=== PATIENT | male | born 1940 ===

== ENCOUNTER 2018-01-09 04:30 | Inpatient (IN) | payer MEDICARE ==
[~2018-01-09] VITALS: Ht 180.3 cm; Wt 93.0 kg
[~2018-01-09 04:30] MED LIST: AMLO10 PO; ASPI81EC PO; ATEN25 PO; ATOR40TA PO; CITA10S PO; CYAN1000 PO; DILT120ERA PO; ERGO400 PO; FOLI1 PO; FOLI400 PO; GABA300 PO; HYDCHL12.5 PO; INSULANPEN SC; LOSA50 PO; MAGOXI400 PO; METO100ER PO; MULVITMINF PO; NIAC500 PO; POTCHL20ER PO; TAMS.4ER PO; UBID10 PO; ZINC GLUCONATE PO; [UNRECOGNIZED DRUG - REMARK]
[2018-01-09 04:56] LABS: BASOPHILS ABSOLUTE AUTO 0.08 K/mm3 (0.00-0.23); BASOPHILS PERCENT AUTO 0 % (0-2); EOSINOPHILS PERCENT AUTO 2 % (0-6); Hematocrit 33.2 % (37.0-53.0); Hemoglobin 10.3 g/dL (13.5-17.5); IMMATURE GRAN ABSOLUTE AUTO 0.12 K/mm3 (0.00-0.10); IMMATURE GRAN PERCENT AUTO 1 % (0-1); LYMPHOCYTES ABSOLUTE AUTO 2.64 K/mm3 (0.84-5.20); LYMPHOCYTES PERCENT AUTO 14 % (21-46); MONOCYTES ABSOLUTE AUTO 1.48 K/mm3 (0.16-1.47); MONOCYTES PERCENT AUTO 8 % (4-13); Mean Corpuscular HGB 29.1 pg (26.0-34.0); Mean Corpuscular Volume 94 fL (80-100); Mean Platelet Volume 10.2 fL (9.1-12.4); NEUTROPHILS ABSOLUTE AUTO 14.78 K/mm3 (1.96-9.15); NEUTROPHILS PERCENT AUTO 76 % (41-73); NRBC ABSOLUTE 0.03 K/mm3 (0.00-0.02); NRBC Auto 0.2 /100 WBC (0.0-0.2); Platelet Count 353 K/mm3 (150-400); RDW Coefficient Variation 17.4 % (11.7-14.2); RDW Standard Deviation 57.8 fL (35.1-46.3); Red Blood Cell Count 3.54 M/mm3 (4.30-5.90)
[2018-01-09] MEDS ORDERED: ELIQUIS5 MG PO (05:12)
[2018-01-09 05:16] LABS: Alanine Aminotransfer (ALT/SGP 54 U/L (12-78); Albumin, Blood 3.1 g/dL (3.4-5.0); Albumin/Globulin Ratio 0.9 (0.8-1.8); Alk Phos 102 U/L (50-136); Anion Gap 11 mmol/L (6-16); Aspartate Aminotrans (AST/SGOT 27 U/L (12-37); Bilirubin, Total 0.3 mg/dL (0.1-1.0); Blood Urea Nitrogen 56 mg/dL (8-24); Bun/Creatinine Ratio 47.1 (12.0-20.0); CO2, Blood 24 mmol/L (21-32); Calcium, Blood 9.6 mg/dL (8.5-10.1); Chloride, Blood 112 mmol/L (98-108); Creatinine, Blood 1.19 mg/dL (0.60-1.20); Ethanol (Alcohol), Blood, Med <3 mg/dL; Globulin, Blood 3.6 g/dL (2.2-4.0); Glomerular Filtration Rate >60 (60-); Glucose, Blood 170 mg/dL (70-99); Potassium, Blood 4.1 mmol/L (3.5-5.5); Sodium, Blood 147 mmol/L (136-145); Total Protein, Blood 6.7 g/dL (6.4-8.2); Troponin I <0.015 ng/mL (0.000-0.040)
[2018-01-09] MEDS ORDERED: METO25ER PO (08:11)
[2018-01-10 05:26] LABS: BASOPHILS ABSOLUTE AUTO 0.07 K/mm3 (0.00-0.23); BASOPHILS PERCENT AUTO 1 % (0-2); EOSINOPHILS ABSOLUTE AUTO 0.49 K/mm3 (0.00-0.68); EOSINOPHILS PERCENT AUTO 3 % (0-6); Hematocrit 27.5 % (37.0-53.0); Hemoglobin 8.6 g/dL (13.5-17.5); IMMATURE GRAN ABSOLUTE AUTO 0.07 K/mm3 (0.00-0.10); IMMATURE GRAN PERCENT AUTO 1 % (0-1); LYMPHOCYTES ABSOLUTE AUTO 3.06 K/mm3 (0.84-5.20); LYMPHOCYTES PERCENT AUTO 20 % (21-46); MONOCYTES ABSOLUTE AUTO 1.48 K/mm3 (0.16-1.47); MONOCYTES PERCENT AUTO 10 % (4-13); Mean Corpuscular HGB 29.7 pg (26.0-34.0); Mean Corpuscular HGB Conc 31.3 g/dL (31.5-36.5); Mean Corpuscular Volume 95 fL (80-100); Mean Platelet Volume 9.9 fL (9.1-12.4); NEUTROPHILS ABSOLUTE AUTO 10.19 K/mm3 (1.96-9.15); NEUTROPHILS PERCENT AUTO 66 % (41-73); NRBC ABSOLUTE 0.04 K/mm3 (0.00-0.02); NRBC Auto 0.3 /100 WBC (0.0-0.2); Platelet Count 290 K/mm3 (150-400); RDW Coefficient Variation 18.2 % (11.7-14.2); RDW Standard Deviation 58.2 fL (35.1-46.3); White Blood Cell Count 15.36 K/mm3 (4.00-11.30)
[2018-01-10 05:51] LABS: Alanine Aminotransfer (ALT/SGP 44 U/L (12-78); Albumin, Blood 2.7 g/dL (3.4-5.0); Albumin/Globulin Ratio 0.9 (0.8-1.8); Alk Phos 106 U/L (50-136); Anion Gap 8 mmol/L (6-16); Aspartate Aminotrans (AST/SGOT 23 U/L (12-37); Bilirubin, Total 0.4 mg/dL (0.1-1.0); Blood Urea Nitrogen 36 mg/dL (8-24); Bun/Creatinine Ratio 34.3 (12.0-20.0); CO2, Blood 25 mmol/L (21-32); Calcium, Blood 8.8 mg/dL (8.5-10.1); Chloride, Blood 114 mmol/L (98-108); Creatinine, Blood 1.05 mg/dL (0.60-1.20); Globulin, Blood 3.1 g/dL (2.2-4.0); Glomerular Filtration Rate >60 (60-); Glucose, Blood 153 mg/dL (70-99); Potassium, Blood 4.3 mmol/L (3.5-5.5); Sodium, Blood 147 mmol/L (136-145); Total Protein, Blood 5.8 g/dL (6.4-8.2)
[2018-01-10 14:08] LABS: Hemoglobin 8.2 g/dL (13.5-17.5)
[2018-01-11 05:06] LABS: Hematocrit 25.7 % (37.0-53.0)
[2018-01-12 05:02] LABS: BASOPHILS ABSOLUTE AUTO 0.05 K/mm3 (0.00-0.23); BASOPHILS PERCENT AUTO 0 % (0-2); EOSINOPHILS PERCENT AUTO 3 % (0-6); Hematocrit 26.5 % (37.0-53.0); Hemoglobin 8.3 g/dL (13.5-17.5); IMMATURE GRAN ABSOLUTE AUTO 0.06 K/mm3 (0.00-0.10); IMMATURE GRAN PERCENT AUTO 1 % (0-1); LYMPHOCYTES ABSOLUTE AUTO 2.52 K/mm3 (0.84-5.20); LYMPHOCYTES PERCENT AUTO 22 % (21-46); MONOCYTES ABSOLUTE AUTO 1.24 K/mm3 (0.16-1.47); MONOCYTES PERCENT AUTO 11 % (4-13); Mean Corpuscular HGB Conc 31.3 g/dL (31.5-36.5); Mean Corpuscular Volume 93 fL (80-100); Mean Platelet Volume 9.8 fL (9.1-12.4); NEUTROPHILS ABSOLUTE AUTO 7.26 K/mm3 (1.96-9.15); NEUTROPHILS PERCENT AUTO 64 % (41-73); NRBC ABSOLUTE 0.04 K/mm3 (0.00-0.02); NRBC Auto 0.3 /100 WBC (0.0-0.2); Platelet Count 293 K/mm3 (150-400); RDW Coefficient Variation 17.5 % (11.7-14.2); RDW Standard Deviation 58.1 fL (35.1-46.3); Red Blood Cell Count 2.86 M/mm3 (4.30-5.90); White Blood Cell Count 11.43 K/mm3 (4.00-11.30)
[2018-01-13] MEDS ORDERED: Omeprazole20 M1 PO (10:26)
== END 2018-01-13 12:09 | disposition home health service (06) | DRG 381 ==
LOC: ER 04:30 → MEDS 06:26 → ENPENDDIS 01-13 10:18 → MEDS 01-13 12:09
PROVIDERS: Emergency Medicine; Internal Medicine Gastroenterology; Student in an Organized Health Care Education/Training Program
PROC: 3E0234Z Introduction of Serum, Toxoid and Vaccine into Muscle, Percutaneous Approach (ICD-10-PCS; 2018-01-09)
PROC: 0D738ZZ Dilation of Lower Esophagus, Via Natural or Artificial Opening Endoscopic (ICD-10-PCS; principal; 2018-01-09 17:40)
DX: K22.11 Ulcer of esophagus with bleeding (principal); I69.354 Hemiplegia and hemiparesis following cerebral infarction affecting left non-dominant side; I47.2 Ventricular tachycardia; I48.2 Chronic atrial fibrillation; K25.4 Chronic or unspecified gastric ulcer with hemorrhage; R13.10 Dysphagia, unspecified; D50.0 Iron deficiency anemia secondary to blood loss (chronic); E11.9 Type 2 diabetes mellitus without complications; K22.2 Esophageal obstruction; I95.1 Orthostatic hypotension; Z23 Encounter for immunization; I10 Essential (primary) hypertension; M21.372 Foot drop, left foot; R47.81 Slurred speech; F32.9 Major depressive disorder, single episode, unspecified; R47.1 Dysarthria and anarthria; D72.829 Elevated white blood cell count, unspecified
CPT/HCPCS: 36415; 70450; 71046; 80053; 82272; 82947; 84484; 85014; 85018; 85025; 93005; 93010; 96360; 96361; 97110; 97162; 97530; 99285; C9113; G0480; G8978; G8979; J1815; J2250; J7030; J7120

== ENCOUNTER 2018-03-13 11:20 | Emergency (ER) | END 2018-03-13 13:50 | disposition home or self-care (01) ==

== ENCOUNTER → 2022-01-05 | Outpatient (CLI) | payer MEDICARE, OTHER ==
[~2022-01-05] MED LIST changes: +AMLO5 PO; +ASPI81CH PO; +BETAGAN; +ELIQUIS5 MG PO; +ISODIN20 PO; +METO25ER PO; +OCUVITE ADULT1 EACH PO; +Omeprazole20 M1 PO; +Prempro 0.3 MG/1 TAB PO; +ROSU10TA PO; +VALSARTAN-HCTZ1 EAC1 PO
== END ==
LOC: LAB 11:00 → LAB SHORT 11:00
DX: E11.9 Type 2 diabetes mellitus without complications (principal)
CPT/HCPCS: 82043

== ENCOUNTER 2023-01-04 08:42 | Inpatient (IN) | payer MEDICARE, OTHER ==
[~2023-01-04] VITALS: Ht 180.3 cm; Wt 89.6 kg
[~2023-01-04 08:42] MED LIST changes: +CEPH500 PO; +Norco 5-325 Ta1 EACH PO
[2023-01-04] MEDS ORDERED: ELIQUIS5 M2 PO (09:10)
[2023-01-04] MEDS ORDERED: SITA100T2 PO (09:10)
[2023-01-04] MEDS ORDERED: DONE5 PO (09:11)
[2023-01-04] MEDS ORDERED: Prinivil10 MG PO (09:11)
[2023-01-04] MEDS ORDERED: Celexa20 MG PO (09:11)
[2023-01-04] MEDS ORDERED: Toprol Xl25 MG PO (09:11)
[2023-01-04] MEDS ORDERED: AMLO5 PO (09:12)
[2023-01-04] MEDS ORDERED: MEMA10 PO (09:12)
[2023-01-04] MEDS ORDERED: ATOR40TA PO (09:12)
[2023-01-04] MEDS ORDERED: INSULANI SC (09:13)
[2023-01-04 09:23] LABS: BASOPHILS ABSOLUTE AUTO 0.07 K/mm3 (0.00-0.23); BASOPHILS PERCENT AUTO 0 % (0-2); EOSINOPHILS ABSOLUTE AUTO 0.02 K/mm3 (0.00-0.68); EOSINOPHILS PERCENT AUTO 0 % (0-6); Hematocrit 25.9 % (37.0-53.0); Hemoglobin 7.8 g/dL (13.5-17.5); IMMATURE GRAN ABSOLUTE AUTO 0.18 K/mm3 (0.00-0.10); IMMATURE GRAN PERCENT AUTO 1 % (0-1); LYMPHOCYTES ABSOLUTE AUTO 1.49 K/mm3 (0.84-5.20); LYMPHOCYTES PERCENT AUTO 8 % (21-46); MONOCYTES ABSOLUTE AUTO 1.59 K/mm3 (0.16-1.47); MONOCYTES PERCENT AUTO 8 % (4-13); Mean Corpuscular HGB 24.6 pg (26.0-34.0); Mean Corpuscular HGB Conc 30.1 g/dL (31.5-36.5); Mean Corpuscular Volume 82 fL (80-100); Mean Platelet Volume 9.9 fL (9.1-12.4); NEUTROPHILS ABSOLUTE AUTO 16.52 K/mm3 (1.96-9.15); NEUTROPHILS PERCENT AUTO 83 % (41-73); NRBC ABSOLUTE 0.06 K/mm3 (0.00-0.02); NRBC Auto 0.3 /100 WBC (0.0-0.2); Platelet Count 313 K/mm3 (150-400); RDW Coefficient Variation 22.6 % (11.7-14.2); RDW Standard Deviation 63.7 fL (35.1-46.3); Red Blood Cell Count 3.17 M/mm3 (4.30-5.90); White Blood Cell Count 19.87 K/mm3 (4.00-11.30)
[2023-01-04 09:36] LABS: Albumin, Blood 2.3 g/dL (3.4-5.0); Albumin/Globulin Ratio 0.7 (0.8-1.8); Bilirubin, Total 0.3 mg/dL (0.1-1.0); Calcium, Blood 9.8 mg/dL (8.5-10.1); Creatinine, Blood 1.12 mg/dL (0.60-1.20); Globulin, Blood 3.4 g/dL (2.2-4.0); Potassium, Blood 4.3 mmol/L (3.5-5.5); Total Protein, Blood 5.7 g/dL (6.4-8.2)
[2023-01-04 10:57] LABS: Influenza A, PCR NEGATIVE (NEGATIVE); Influenza B, PCR NEGATIVE (NEGATIVE); Resp Syncytial Virus, PCR NEGATIVE (NEGATIVE); SARS-Cov-2 (COVID-19) PCR, MMC NEGATIVE (NEGATIVE)
[2023-01-04 12:54] LABS: BASOPHILS ABSOLUTE AUTO 0.07 K/mm3 (0.00-0.23); BASOPHILS PERCENT AUTO 0 % (0-2); EOSINOPHILS PERCENT AUTO 0 % (0-6); Hematocrit 26.4 % (37.0-53.0); Hemoglobin 8.3 g/dL (13.5-17.5); IMMATURE GRAN ABSOLUTE AUTO 0.18 K/mm3 (0.00-0.10); IMMATURE GRAN PERCENT AUTO 1 % (0-1); LYMPHOCYTES ABSOLUTE AUTO 1.18 K/mm3 (0.84-5.20); LYMPHOCYTES PERCENT AUTO 5 % (21-46); MONOCYTES ABSOLUTE AUTO 1.49 K/mm3 (0.16-1.47); MONOCYTES PERCENT AUTO 6 % (4-13); Mean Corpuscular HGB 25.5 pg (26.0-34.0); Mean Corpuscular HGB Conc 31.4 g/dL (31.5-36.5); Mean Corpuscular Volume 81 fL (80-100); Mean Platelet Volume 10.2 fL (9.1-12.4); NEUTROPHILS ABSOLUTE AUTO 21.09 K/mm3 (1.96-9.15); NEUTROPHILS PERCENT AUTO 88 % (41-73); NRBC ABSOLUTE 0.08 K/mm3 (0.00-0.02); NRBC Auto 0.3 /100 WBC (0.0-0.2); Platelet Count 318 K/mm3 (150-400); RDW Coefficient Variation 22.5 % (11.7-14.2); RDW Standard Deviation 62.7 fL (35.1-46.3); Red Blood Cell Count 3.25 M/mm3 (4.30-5.90); White Blood Cell Count 24.01 K/mm3 (4.00-11.30)
[2023-01-04] MEDS ORDERED: POTCHL20ER PO (14:19)
[2023-01-04] MEDS ORDERED: FISH OIL 1,2001 EAC4 PO (14:20)
[2023-01-04] MEDS ORDERED: MULVITA PO (14:20)
[2023-01-04] MEDS ORDERED: B-121000 MC7 PO (14:21)
[2023-01-04] MEDS ORDERED: C COMPLEX1000 M1 PO (14:22)
[2023-01-04] MEDS ORDERED: MELATONIN5 M1 PO (14:23)
[2023-01-04 15:53] LABS: Hemoglobin 7.9 g/dL (13.5-17.5)
[2023-01-04 16:41] LABS: Percent Saturation 8.4 % (20.0-50.0)
--- NOTE | 2023-01-04 18:34 | NUR ---
SHIFT SUMMARY PT ARRIVED TO PCU FROM ED VIA ED STRETCHER AT APPROX 1300. PT WAS SLID BY 4 STAFF FROM ED STRETCHER TO PCU BED. PT ALERT, OREINTED TO SELF, LOCATION. HX OF DEMENTIA, FORGETFUL W/ SHORT TERM MEMORY. ACCOMPANIED BY WHO PT DEFERS TO FOR ANSWERS TO MEDICAL INFORMATION/HX. SP02>90% ON RA. TELEMETRY SHOWS AFIB, HR 70'S, VSS. PT ATTEMPTED TO USE URINAL TO VOID X1 THIS SHIFT BUT STATES, "I DIDNT REALIZE THERE WAS A LID". URINE SAMPLE UNABLE TO BE OBTAINED. NO BM THIS SHIFT. FLUIDS INFUSING PER EMAR. NEW PG PLACED IN CARLOZ, PROTONIX AND ABX INFUSING PER EMAR. MD SERVIN IN ROOM THIS AFTERNOON TO ASSESS PT. STATES PT CAN BE FULL LIQUID DIET UNTIL MIDNIGHT. AFTER MINIGHT, ONLY WATER. NPO AT NOON 01/05. PT HAD CRITICAL LACTIC ACID CALL FROM LAB, 5.0. CALL PLACED TO MD LINDER. MD LINDER W/ ORDERS TO INCREASE FLUID ADMINISTRATION, SEE EMAR. PT'S IN ROOM W/ HIM MOST OF DAY. PT ORIENTED TO ROOM, CALL LIGHT. CALL LIGHT IN REACH. BED ALARM ON.
[2023-01-04 19:43] LABS: Hematocrit 23.9 % (37.0-53.0); Hemoglobin 7.3 g/dL (13.5-17.5)
[2023-01-05 00:21] LABS: Hematocrit 23.1 % (37.0-53.0)
[2023-01-05 00:23] LABS: Source, Urine Clean Catch
[2023-01-05 00:49] LABS: Bilirubin, Urine Neg (Neg); Blood, Urine 2+ (Neg); Glucose Qualitative, Urine Neg (Neg); Ketones, Urine Neg (Neg); Leukocyte Esterase, Urine Neg (Neg); Nitrite, Urine Neg (Neg); Protein, Urine Neg (Neg); Specific Gravity, Urine 1.015 (1.003-1.022); Urobilinogen, Urine NORM (Normal)
[2023-01-05 01:03] LABS: Appearance, Urine Clear (Clear); Color, Urine Yellow (P-Yellow)
[2023-01-05 01:05] LABS: Bacteria Not Seen /hpf; Squamous Epithelial Cells Not Seen /hpf (Few); White Blood Cells, Urine 0-2 /hpf (0-5)
[2023-01-05 03:34] LABS: BASOPHILS ABSOLUTE AUTO 0.06 K/mm3 (0.00-0.23); BASOPHILS PERCENT AUTO 0 % (0-2); EOSINOPHILS ABSOLUTE AUTO 0.16 K/mm3 (0.00-0.68); EOSINOPHILS PERCENT AUTO 1 % (0-6); Hematocrit 21.4 % (37.0-53.0); Hemoglobin 6.6 g/dL (13.5-17.5); IMMATURE GRAN ABSOLUTE AUTO 0.12 K/mm3 (0.00-0.10); IMMATURE GRAN PERCENT AUTO 1 % (0-1); LYMPHOCYTES ABSOLUTE AUTO 2.13 K/mm3 (0.84-5.20); LYMPHOCYTES PERCENT AUTO 11 % (21-46); MONOCYTES ABSOLUTE AUTO 2.02 K/mm3 (0.16-1.47); MONOCYTES PERCENT AUTO 10 % (4-13); Mean Corpuscular HGB 25.3 pg (26.0-34.0); Mean Corpuscular HGB Conc 30.8 g/dL (31.5-36.5); Mean Corpuscular Volume 82 fL (80-100); Mean Platelet Volume 9.5 fL (9.1-12.4); NEUTROPHILS ABSOLUTE AUTO 15.28 K/mm3 (1.96-9.15); NEUTROPHILS PERCENT AUTO 77 % (41-73); NRBC ABSOLUTE 0.05 K/mm3 (0.00-0.02); NRBC Auto 0.3 /100 WBC (0.0-0.2); Platelet Count 281 K/mm3 (150-400); RDW Coefficient Variation 23.6 % (11.7-14.2); Red Blood Cell Count 2.61 M/mm3 (4.30-5.90); White Blood Cell Count 19.77 K/mm3 (4.00-11.30)
[2023-01-05 03:59] LABS: Albumin, Blood 2.4 g/dL (3.4-5.0); Albumin/Globulin Ratio 0.8 (0.8-1.8); Bilirubin, Total 0.4 mg/dL (0.1-1.0); Bun/Creatinine Ratio 46.6 (12.0-20.0); Creatinine, Blood 1.18 mg/dL (0.60-1.20); Globulin, Blood 3.2 g/dL (2.2-4.0); Magnesium, Blood 2.1 mg/dL (1.6-2.4); Phosphorus, Blood 3.4 mg/dL (2.5-4.9); Potassium, Blood 3.9 mmol/L (3.5-5.5); Total Protein, Blood 5.6 g/dL (6.4-8.2)
--- NOTE | 2023-01-05 04:31 | NUR ---
SHIFT SUMMARY PT A&Ox4, CAN BE A LITTLE FORGETFUL AT TIMES AND HAVE ODD STATEMENTS, HAS Hx OF DEMENTIA AND CVA. CALLS AND COMMUNICATES NEEDS APPROPRIATELY. BP STABLE, AFIB 70-90's, DENIES CP/PRESSURE. SpO2> 92% RA, DENIES SOB. PT WITH BOTH INCONTINENT AND CONTINENT VOIDS, USES URINAL IN BED. PT WITH 1 SMALL, FIRM, LIGHT BROWN, INCONTINENT BM THIS SHIFT. ATTENDS IN PLACE. NO S/S OF BLEEDING. PROTONIX gtt AND 1/2 NS INFUSING PER EMAR. PHYSICIAN NOTIFIED OF Hgb BEING 6.6, ORDERS PLACED. NO OTHER EVENTS, WILL REPORT TO ON COMING RN.
[2023-01-05 09:41] LABS: Hematocrit 28.4 % (37.0-53.0); Hemoglobin 8.8 g/dL (13.5-17.5)
--- NOTE | 2023-01-05 10:47 | NUR ---
UPDATE PT CBG TAKEN THIS AM: 70. PT NPO FOR SCOPE. CALL PLACED TO MD LINDER. MD LINDER AT BEDSIDE TO ASSESS PT. CBG RETAKEN: 54. MD LINDER W/ ORDERS FOR 1/2 AMP D50 AND CHANGE FLUIDS TO D5 1/2NS SEE EMAR. WILL RECHECK BLOOD GLUCOSE.
--- NOTE | 2023-01-05 14:23 | NUR ---
Pt in bed being loaded for OR for scope. Pt frail and weak with foot drop. at bedside. Therputic brief conversation with of introduction. Advised cornel help with plan of care after Dr. Zoila munroe's pt. Will follow up with completeing polst, symptom management and prognostication.
--- NOTE | 2023-01-05 15:50 | NUR ---
01/05/23 1550 Naheed Gonzalez HISTORY, CHART, MEDICATIONS AND ALLERGIES REVIEWED BEFORE START OF PROCEDURE. PATIENT CONFIRMS NPO STATUS AND AGREES WITH SCHEDULED PROCEDURE. 3-LEAD EKG REVIEWED WITH PHYSICIAN PRIOR TO START OF PROCEDURE. MONITOR INTACT WITH CONTINUOUS PULSE OXIMETRY,CAPNOGRAPHY, 3-LEAD EKG, INTERMITTENT BP. SUPPLEMENTAL O2 TO BE TITRATED THROUGHOUT PROCEDURE TO MAINTAIN O2 SATURATION ABOVE 90%. PATIENT DETERMINED TO BE ASA APPROPRIATE FOR PROPOFOL SEDATION PRIOR TO START OF PROCEDURE BY .
--- NOTE | 2023-01-05 18:39 | NUR ---
SHIFT SUMMARY PT ALERT, COOPERATIVE, PLEASANTLY CONFUSED. SP02>90% ON RA. TELEMTRY SHOWS MOSTLY AFIB, HR 70'S-90'S. PT DENIED PAIN. UPON CARE ASSUMPTION, 1 UNIT PRBC INFUSING. PT HAD LOW BLOOD SUGARS THIS SHIFT, SEE PREVIOUS NOTE. D5 1/2 NS INFUSING PER EMAR. PT ABLE TO EAT A FEW BITES OF DINNER. MOST RECENT CB. CBG TAKEN Q1H. PT DOWN TO HAVE UPPER ENDOSCOPY THIS SHIFT. MD SERVIN W/ ORDERS TO D/C PROTONIX GTT AND SWITCH TO PROTONIX PO, SEE EMAR. PT OKAYED TO EAT. PT HAD 3 FIRM INCONTINENT BM'S THIS SHIFT. ATTENDS AND LINEN CHANGED. C/D ATTENDS IN PLACE. PT'S IN ROOM MOST OF DAY. CALL LIGHT IN REACH. ABX INFUSING PER EMAR.
--- NOTE | 2023-01-06 04:44 | NUR ---
SHIFT SUMMARY NO ACUTE CHANGES THIS SHIFT. VSS. AXO. IN AFIB, CONTROLLED RATE. ON RA. NO BM/EMESIS THIS SHIFT. D5 1/2 NS INFUSING AT 100MLS/HR AT BEGINNING OF SHIFT, CALLED PROVIDER REGARDING CBG RESULT >200. DRIP TURNED OFF. MONITORING CBG'S Q2, GRADUIALC DECLINE NOTED, STILL CURRENTLY >80. OTHERWISE, PT RESTING OFF AND ON. PT WITH CONSTANT COMPLETE SOILING OF BRIEFS WITH INCONTINENT VOIDS. BED ALARM ON. BED ION LOW POSITION. POWERGLIDE PATENT AND DRAWS WELL.
[2023-01-06 04:46] LABS: BASOPHILS ABSOLUTE AUTO 0.07 K/mm3 (0.00-0.23); BASOPHILS PERCENT AUTO 1 % (0-2); EOSINOPHILS ABSOLUTE AUTO 0.33 K/mm3 (0.00-0.68); EOSINOPHILS PERCENT AUTO 3 % (0-6); Hematocrit 23.6 % (37.0-53.0); Hemoglobin 7.4 g/dL (13.5-17.5); IMMATURE GRAN ABSOLUTE AUTO 0.05 K/mm3 (0.00-0.10); IMMATURE GRAN PERCENT AUTO 0 % (0-1); LYMPHOCYTES ABSOLUTE AUTO 1.83 K/mm3 (0.84-5.20); LYMPHOCYTES PERCENT AUTO 14 % (21-46); MONOCYTES ABSOLUTE AUTO 1.32 K/mm3 (0.16-1.47); MONOCYTES PERCENT AUTO 10 % (4-13); Mean Corpuscular HGB 26.3 pg (26.0-34.0); Mean Corpuscular HGB Conc 31.4 g/dL (31.5-36.5); Mean Corpuscular Volume 84 fL (80-100); Mean Platelet Volume 9.6 fL (9.1-12.4); NEUTROPHILS ABSOLUTE AUTO 9.41 K/mm3 (1.96-9.15); NEUTROPHILS PERCENT AUTO 72 % (41-73); NRBC ABSOLUTE 0.04 K/mm3 (0.00-0.02); NRBC Auto 0.3 /100 WBC (0.0-0.2); Platelet Count 254 K/mm3 (150-400); RDW Coefficient Variation 22.5 % (11.7-14.2); RDW Standard Deviation 65.1 fL (35.1-46.3); Red Blood Cell Count 2.81 M/mm3 (4.30-5.90); White Blood Cell Count 13.01 K/mm3 (4.00-11.30)
[2023-01-06 05:50] LABS: Vancomycin, Trough 21.6 ug/mL (5.0-10.0)
--- NOTE | 2023-01-06 11:23 | NUR ---
BUSINESS INTELLIGENCE ADMINISTRATOR NOTE PT MOVED TO MEDICAL FLOOR FROM PCU. SLEEPY, AROUSES TO VOICE. DENIES PAIN. ORIENTATED TO SELF, MMC, MONTH, NOT YEAR.
[2023-01-06 11:26] LABS: Hemoglobin 8.2 g/dL (13.5-17.5)
[2023-01-06] MEDS ORDERED: PANT40 PO (15:05)
--- NOTE | 2023-01-06 15:44 | NUR ---
RN NOTE PT AND VERBALISED UNDERSTANDING OF WRITTEN AND VERBAL DISCHARGE INSTRUCTIONS. TRANSPORT ARRANGED FOR 7PM TODAY FOR DISCHARGE.
--- NOTE | 2023-01-06 17:00 | NUR ---
SHIFT SUMMARY SEE PRIOR NOTE. MR PEREZ HAS TRANSPORT BOOKED FOR DISCHARGE AT 1900HRS. DISCHARGE INSTRUCTIONS GIVEN TO PT AND HIS . SHE HAS GONE TO P/U PRESCRIPTIONS. HE STILL HAS IV ACCESS X [address] TO BE REMOVED PRIOR TO DISCHARGE. TURNED AND REPOSITIONED IN BED, INCONT LARGE URINE AMOUNT AND STOOL. SKIN INTACT. NO C/O PAIN OR SOB. BED LOW. BED ALARM ON. CALL LIGHT IN REACH.
--- NOTE | 2023-01-06 17:46 | NUR ---
RN NOTE REPORT TO BETTY POP RN. TRANSPORT EXPECTED AT 1900HRS.
[2023-01-06 17:50] LABS: Vancomycin, Trough 14.6 ug/mL (5.0-10.0)
--- NOTE | 2023-01-06 18:18 | NUR ---
CALLED DR LINDER TO CONFIRM THE PT DID NOT NEED A SCRIPT FOR ABX ON DISCHARGE, THE PT IS CURRENTLY RECIEVING A DOSE OF ABX. NO NEW ORDER FOR ABX ON DICHARGE.
== END 2023-01-06 22:43 | disposition home or self-care (01) | DRG 380 ==
LOC: ER 08:42 → PCU 12:02 → MEDS 01-06 11:08
PROVIDERS: Internal Medicine Gastroenterology; Student in an Organized Health Care Education/Training Program; ADMIT Family Medicine
PROC: 3E03329 Introduction of Other Anti-infective into Peripheral Vein, Percutaneous Approach (ICD-10-PCS; 2023-01-04)
PROC: 0DJ08ZZ Inspection of Upper Intestinal Tract, Via Natural or Artificial Opening Endoscopic (ICD-10-PCS; 2023-01-05)
PROC: 30233N1 Transfusion of Nonautologous Red Blood Cells into Peripheral Vein, Percutaneous Approach (ICD-10-PCS; principal; 2023-01-05 15:30)
DX: K22.11 Ulcer of esophagus with bleeding (principal); A41.9 Sepsis, unspecified organism; D62 Acute posthemorrhagic anemia; F03.93 Unspecified dementia, unspecified severity, with mood disturbance; E87.20 Acidosis, unspecified; D68.32 Hemorrhagic disorder due to extrinsic circulating anticoagulants; I69.354 Hemiplegia and hemiparesis following cerebral infarction affecting left non-dominant side; K25.4 Chronic or unspecified gastric ulcer with hemorrhage; Z20.822 Contact with and (suspected) exposure to COVID-19; Z66 Do not resuscitate; I48.91 Unspecified atrial fibrillation; I10 Essential (primary) hypertension; E11.9 Type 2 diabetes mellitus without complications; E61.1 Iron deficiency; I95.9 Hypotension, unspecified; K44.9 Diaphragmatic hernia without obstruction or gangrene; K59.00 Constipation, unspecified; T45.515A Adverse effect of anticoagulants, initial encounter; E78.5 Hyperlipidemia, unspecified; F32.A Depression, unspecified; Z91.199 Patient's noncompliance with other medical treatment and regimen due to unspecified reason; I69.319 Unspecified symptoms and signs involving cognitive functions following cerebral infarction; Z86.2 Personal history of diseases of the blood and blood-forming organs and certain disorders involving the immune mechanism; Z90.49 Acquired absence of other specified parts of digestive tract; Z90.89 Acquired absence of other organs; Z98.890 Other specified postprocedural states; Z91.013 Allergy to seafood; Z79.4 Long term (current) use of insulin; Z79.01 Long term (current) use of anticoagulants; Z79.899 Other long term (current) drug therapy
CPT/HCPCS: 0241U; 36415; 36430; 70450; 71045; 74177; 80053; 80202; 81001; 82272; 82728; 82947; 83540; 83550; 83605; 83735; 84100; 84443; 84484; 85014; 85018; 85025; 86850; 86900; 86901; 86923; 93005; 93010; 99285-25; A9270; C1751; C9113; J1815; J2543; J2704; J3370; J7042; J7050; J7120; J7799; P9016; Q9967

== ENCOUNTER 2024-09-22 10:19 | Inpatient (IN) | payer MEDICARE, OTHER ==
[~2024-09-22] VITALS: Ht 180.3 cm; Wt 80.0 kg
[~2024-09-22 10:19] MED LIST changes: +B-121000 MC7 PO; +C COMPLEX1000 M1 PO; +Celexa20 MG PO; +DONE5 PO; +ELIQUIS5 M2 PO; +ELIQUIS5 M3 PO; +FISH OIL 1,2001 EAC4 PO; +INSULANI SC; +MELATONIN5 M1 PO; +MEMA10 PO; +MULVITA PO; +PANT40 PO; +Prinivil10 MG PO; +SITA100T2 PO; +Toprol Xl25 MG PO
[2024-09-22] MEDS ORDERED: Prinivil10 MG PO (10:35)
[2024-09-22] MEDS ORDERED: POTCHL20ER PO (10:35)
[2024-09-22 11:01] LABS: BASOPHILS ABSOLUTE AUTO 0.09 K/mm3 (0.00-0.23); BASOPHILS PERCENT AUTO 1 % (0-2); EOSINOPHILS ABSOLUTE AUTO 0.29 K/mm3 (0.00-0.68); EOSINOPHILS PERCENT AUTO 3 % (0-6); Hematocrit 34.5 % (37.0-53.0); Hemoglobin 9.1 g/dL (13.5-17.5); IMMATURE GRAN ABSOLUTE AUTO 0.02 K/mm3 (0.00-0.10); IMMATURE GRAN PERCENT AUTO 0 % (0-1); LYMPHOCYTES ABSOLUTE AUTO 1.84 K/mm3 (0.84-5.20); LYMPHOCYTES PERCENT AUTO 20 % (21-46); MONOCYTES PERCENT AUTO 14 % (4-13); Mean Corpuscular HGB 16.4 pg (26.0-34.0); Mean Corpuscular HGB Conc 26.4 g/dL (31.5-36.5); Mean Corpuscular Volume 62 fL (80-100); NEUTROPHILS ABSOLUTE AUTO 5.91 K/mm3 (1.96-9.15); NEUTROPHILS PERCENT AUTO 62 % (41-73); Platelet Count 411 K/mm3 (150-400); RDW Coefficient Variation 24.9 % (11.7-14.2); RDW Standard Deviation 53.3 fL (35.1-46.3); Red Blood Cell Count 5.56 M/mm3 (4.30-5.90); White Blood Cell Count 9.45 K/mm3 (4.00-11.30)
[2024-09-22 11:21] LABS: Albumin, Blood 2.7 g/dL (3.4-5.0); Albumin/Globulin Ratio 0.6 (0.8-1.8); Bilirubin, Total 0.4 mg/dL (0.1-1.0); Bun/Creatinine Ratio 20.4 (12.0-20.0); Calcium, Blood 9.2 mg/dL (8.5-10.1); Creatinine, Blood 1.08 mg/dL (0.60-1.20); Globulin, Blood 4.3 g/dL (2.2-4.0); Potassium, Blood 4.3 mmol/L (3.5-5.5)
[2024-09-22] MEDS ORDERED: Polyethylene Glycol 3350 17 gm PO ONE (12:15)
[2024-09-22] MEDS ORDERED: Lidocaine 2% Jelly Uro-Jet UR ONE (12:15)
[2024-09-22] MEDS ORDERED: Lactulose 200 GM/300 ML Enema 300ML BTL PR ONE ×2 (12:30→16:15)
[2024-09-22 12:56] LABS: Source, Urine Clean Catch
[2024-09-22 13:01] LABS: Appearance, Urine Clear (Clear); Bilirubin, Urine Neg (Neg); Blood, Urine Neg (Neg); Color, Urine Yellow (P-Yellow); Glucose Qualitative, Urine 1+ (Neg); Ketones, Urine Neg (Neg); Leukocyte Esterase, Urine Neg (Neg); Nitrite, Urine Neg (Neg); Protein, Urine Neg (Neg); Urobilinogen, Urine NORM (Normal)
[2024-09-22] MEDS ORDERED: Ondansetron 4 MG TAB PO PRN (19:15)
[2024-09-22] MEDS ORDERED: Magnesium Hydroxide Conc 10 ML UDC PO PRN (19:20)
[2024-09-22] MEDS ORDERED: FLU VACC TS2024-25(6MOS UP)/PF 45 MCG/0.5 ML SYRINGE IM ONE (19:20)
[2024-09-22] MEDS ORDERED: Metoprolol Succinate 25 MG TABCR PO SCH (21:00)
[2024-09-22] MEDS ORDERED: Memantine HCL 5 MG Tab PO SCH (21:00)
[2024-09-22] MEDS ORDERED: Donepezil HCl 5 MG Tab PO SCH (21:00)
[2024-09-22] MEDS ORDERED: Apixaban 5 MG Tab PO SCH (21:00)
[2024-09-22] MEDS ORDERED: Docusate Sodium 100 MG Cap PO SCH (21:00)
[2024-09-22] MEDS ORDERED: Insulin Glargine-Yfgn 100 Unit/mL 3 ML SYR SC SCH (21:00)
[2024-09-22] MEDS ORDERED: Famotidine 20 MG Tab PO SCH (21:00)
[2024-09-22] MEDS ORDERED: Sennosides 8.6 MG Tab PO SCH (21:00)
[2024-09-22 21:59] VITALS: BP 150/78
[2024-09-23] MEDS ORDERED: Lactulose 200 GM/300 ML Enema 300ML BTL PR SCH
[2024-09-23 03:19] VITALS: BP 148/74
--- NOTE | 2024-09-23 06:19 | NUR ---
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 ENEMMA HEAD OF TALENT MANAGEMENT PER ORDER. PAUL DRAINING CLEAR YELLOW URINE FOR ACUTE RETENTION.. PT IS AAO TO SELF AND . HE HAS CAREGIVERS THAT COME TO HIS HOUSE TO CHANGE HIS BRIEFS. COOPERATIVE WITH CARES AFTER STRONG ENCOURAGEMENT, BUT WHO CAN BLAME HIM. 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 HE USES A LIFT @ HOME.NO REAL REMARKABLE BM AFTER ENEMMA GIVEN, SM BM.
[2024-09-23] MEDS ORDERED: Pantoprazole Sodium 40 MG Tab PO SCH (07:30)
[2024-09-23 07:51] VITALS: BP 143/78
[2024-09-23] MEDS ORDERED: Atorvastatin 40 MG Tab PO SCH (09:00)
[2024-09-23] MEDS ORDERED: AmLODIPine Besylate 5 MG Tab PO SCH (09:00)
[2024-09-23] MEDS ORDERED: Citalopram Hydrobromide 20 MG Tab PO SCH (09:00)
[2024-09-23] MEDS ORDERED: Potassium Chloride 20 MEQ TabCR PO SCH (09:00)
[2024-09-23] MEDS ORDERED: Lisinopril 10 MG Tab PO SCH (09:00)
[2024-09-23] MEDS ORDERED: Polyethylene Glycol 3350 17 gm PO SCH (11:00)
[2024-09-23 15:49] VITALS: BP 118/64
--- NOTE | 2024-09-23 18:44 | NUR ---
SHIFT SUMMARY: PT ORIENTED TO SELF AND FAMILY. PLEASANT AND COOPERATIVE WITH CARE. PT HAD X-LARGE BM THIS AM. REPEAT ABDOMINAL XRAY COMPLETED SHOWING MODERATE TO LARGE FECAL OBSTRUCTION. MIRALAX AND ENEMA PROVIDED PER ORDERS. PT AND HOPEFUL TO GO HOME THIS SHIFT BUT UNDERSTAND REASONING FOR STAY IN HOSPITAL. PAUL IN PLACE DRAINING YELLOW URINE TO GRAVITY. CALL LIGHT IN REACH. BED IN LOWEST POSITION.
[2024-09-23 20:33] VITALS: BP 125/67
[2024-09-24 02:55] VITALS: BP 131/77
--- NOTE | 2024-09-24 06:48 | NUR ---
AAO X2, PLEASANT AND COOPERATIVE WITH CARES. SWALLOWS PILLS WHOLE.. L SIDE DEFICIT D/T CVA. PAUL DRAIND DARK YELLOW URINE. ENEMMA GIVEN PER ORDER, WITHOUT ANY SIGNIFICANT BM THROUGOUT NIGHT. NO ACUTE CONCERNS OVER NIGHT.
[2024-09-24 07:35] VITALS: BP 141/67
[2024-09-24 11:57] LABS: BASOPHILS ABSOLUTE AUTO 0.09 K/mm3 (0.00-0.23); BASOPHILS PERCENT AUTO 1 % (0-2); EOSINOPHILS ABSOLUTE AUTO 0.17 K/mm3 (0.00-0.68); EOSINOPHILS PERCENT AUTO 2 % (0-6); Hematocrit 33.4 % (37.0-53.0); Hemoglobin 8.8 g/dL (13.5-17.5); IMMATURE GRAN ABSOLUTE AUTO 0.04 K/mm3 (0.00-0.10); IMMATURE GRAN PERCENT AUTO 0 % (0-1); LYMPHOCYTES ABSOLUTE AUTO 1.62 K/mm3 (0.84-5.20); LYMPHOCYTES PERCENT AUTO 14 % (21-46); MONOCYTES PERCENT AUTO 13 % (4-13); Mean Corpuscular HGB 16.4 pg (26.0-34.0); Mean Corpuscular HGB Conc 26.3 g/dL (31.5-36.5); Mean Corpuscular Volume 62 fL (80-100); Mean Platelet Volume 9.1 fL (9.1-12.4); NEUTROPHILS ABSOLUTE AUTO 8.22 K/mm3 (1.96-9.15); NEUTROPHILS PERCENT AUTO 71 % (41-73); Platelet Count 408 K/mm3 (150-400); RDW Standard Deviation 53.5 fL (35.1-46.3); Red Blood Cell Count 5.36 M/mm3 (4.30-5.90); White Blood Cell Count 11.64 K/mm3 (4.00-11.30)
[2024-09-24] MEDS ORDERED: Tamsulosin HCl 0.4 MG Cap PO SCH (12:00)
[2024-09-24 12:11] LABS: Bun/Creatinine Ratio 16.1 (12.0-20.0); Calcium, Blood 9.6 mg/dL (8.5-10.1); Creatinine, Blood 1.18 mg/dL (0.60-1.20)
[2024-09-24 16:20] VITALS: BP 106/59
--- NOTE | 2024-09-24 17:24 | NUR ---
SHIFT SUMMARY PT IS A/OX3, CONFUSION OF DATE/TIME. PT RECIEVING LACTULOSE ENEMAS Q6. HAVING MULTIPLE BM'S THROUGHOUT THIS SHIFT. PT IS INCONTINENT OF BOWELS. PAUL IN PLACE, DRAINING CLEAR, YELLOW URINE. LEFT SIDED DEFICITS D/T HX OF CVA. PT TAKES MEDS WHOLE WITH WATER. AT BEDSIDE THROUGHOUT THE SHIFT. CALL LIGHT IN REACH.
[2024-09-24 19:39] VITALS: BP 101/56
[2024-09-25 04:09] VITALS: BP 132/65
--- NOTE | 2024-09-25 06:45 | NUR ---
NOC SHIFT SUMMARY; NO ACUTE EVENTS TO REPORT THIS SHIFT. PT A&O X1-2;CALM FOR MAJORITY OF SHIFT, WITH ONE INCIDENCE OF YELLING AT STAFF TO CHANGE HIS PILLOW; COOPERATIVE WITH CARE. NO C/O PAIN OR NAUSEA THIS SHIFT. PT INCONTINENT OF BOWEL AND BLADDER; VOIDING SPONTANEOUSLY SINCE PAUL CATHETER REMOVAL 09/24. BLADDER SCAN Q4H; PVR <250ML. EXPECTED D/C TO HOME 09/25. WCTM.
[2024-09-25 07:34] VITALS: BP 150/121
[2024-09-25 09:16] VITALS: BP 103/61
[2024-09-25] MEDS ORDERED: DULCOLAX400 MG/5 M PO (12:46)
[2024-09-25] MEDS ORDERED: DOCU100 PO (12:46)
[2024-09-25] MEDS ORDERED: MIRALAX17 GM PO (12:46)
--- NOTE | 2024-09-25 14:55 | NUR ---
DISCHARGE: PT D/C @1400 VIA GURNEY BACK TO HOME WITH AND CAREGIVERS. PT HAD LARGE BM PRIOR TO D/C. PT VOIDING WELL POST PAUL REMOVAL. CAREGIVER TO MEET PT AT HOME. IV REMOVED FROM LFA W/O COMPLICATIONS. MEDICATIONS FAXED TO [facility]. PT AND AWARE OF FOLLOW-UP APPOINTMENT. NO QUESTIONS AT TIME OF D/C.
== END 2024-09-25 14:10 | disposition home or self-care (01) | DRG 389 ==
LOC: ER 10:19 → MEDS 21:10 → ERHOLD 21:10 → MEDS 22:04
PROVIDERS: Emergency Medicine; Hospitalist; ADMIT Hospitalist
DX: K56.41 Fecal impaction (principal); D68.69 Other thrombophilia; G82.20 Paraplegia, unspecified; I48.91 Unspecified atrial fibrillation; R33.9 Retention of urine, unspecified; I10 Essential (primary) hypertension; E11.9 Type 2 diabetes mellitus without complications; D64.9 Anemia, unspecified; N32.0 Bladder-neck obstruction; Z91.013 Allergy to seafood; Z90.49 Acquired absence of other specified parts of digestive tract; Z86.73 Personal history of transient ischemic attack (TIA), and cerebral infarction without residual deficits; Z98.890 Other specified postprocedural states; Z79.01 Long term (current) use of anticoagulants; Z79.4 Long term (current) use of insulin; Z79.899 Other long term (current) drug therapy; Z87.19 Personal history of other diseases of the digestive system
CPT/HCPCS: 36415; 51702; 74018; 74022; 74177; 80048; 80053; 81003; 82565; 82947; 85025; 99285-25; A9270; G0378; J1815; Q9967

== ENCOUNTER 2024-12-19 13:08 | Day surgery (SDC) | payer OTHER ==
[~2024-12-19] VITALS: Ht 180.3 cm; Wt 84.0 kg
[~2024-12-19 13:08] MED LIST changes: +DOCU100 PO; +DULCOLAX400 MG/5 M PO; +MIRALAX17 GM PO; +NS 500 ML IV ONE; +Povidone-Iodine 450 DROP/30 ML Solution ONE; +Tetracaine HCl/Pf 0.5% Opth Soln 4 ml ONE; +Triamcinolone Inj Susp 40 MG / ML 1ML Vial ONE
[2024-12-19] MEDS ORDERED: Midazolam HCl 1MG / ML 2ML Vial ONE (13:25)
[2024-12-19] MEDS ORDERED: FentaNYL Citrate 50 MCG/ML 2 ML Injection ONE (13:25)
[2024-12-19] MEDS ORDERED: NS 1,000 ML IV ONE (14:01)
[2024-12-19] MEDS ORDERED: propofoL 20 ML IV ONE ×2 (14:32→14:37)
[2024-12-19] MEDS ORDERED: Ondansetron HCl 2 MG / ML 2ML Vial ONE (14:33)
[2024-12-19] MEDS ORDERED: Lidocaine HCl 1% 5 ML SYR INJ ONE (14:50)
[2024-12-19] MEDS ORDERED: Moxifloxacin HCL 0.5 MG/0.1 ML 0.4MLSYR XX ONE (14:50)
[2024-12-19] MEDS ORDERED: BSS PLUS/EPINEPHRINE IRRIGATION SOLUTION 500 ML RIGHTEYE ONE (14:50)
[2024-12-19] MEDS ORDERED: ePHEDrine Sulfate 50 MG/ML 1ML Injection ONE (15:02)
--- NOTE | 2024-12-19 15:41 | NUR ---
12/19/24 1541 Naheed Ortiz PT RESPONDING AND ANSWERING QUESTIONS. PT FOLLOWS SIMPLE COMMANDS. PT ON 10L SIMPLE MASK. RN X3 AT BEDSIDE. DENIES PAIN AT THIS TIME.
[2024-12-19 15:48] VITALS: BP 120/56
--- NOTE | 2024-12-19 15:59 | NUR ---
12/19/24 1559 Naheed Ortiz RN X4 USED ROWENA AND PLACED PATIENT BACK IN WHEELCHAIR
== END 2024-12-19 16:17 | disposition home or self-care (01) ==
LOC: ORSCSDS 13:08
PROVIDERS: Ophthalmology
PROC: 08RJ3JZ Replacement of Right Lens with Synthetic Substitute, Percutaneous Approach (ICD-10-PCS; principal; 2024-12-19 14:30)
DX: E11.36 Type 2 diabetes mellitus with diabetic cataract (principal); H25.813 Combined forms of age-related cataract, bilateral; I10 Essential (primary) hypertension; I25.2 Old myocardial infarction; I48.20 Chronic atrial fibrillation, unspecified; Z79.01 Long term (current) use of anticoagulants; Z86.73 Personal history of transient ischemic attack (TIA), and cerebral infarction without residual deficits; Z79.899 Other long term (current) drug therapy; Z79.4 Long term (current) use of insulin
CPT/HCPCS: 82947; J2250; J2405; J2704; J3010; J3301; J7040; V2632

== ENCOUNTER 2025-01-16 13:27 | Day surgery (SDC) | payer OTHER ==
[~2025-01-16] VITALS: Ht 180.3 cm; Wt 83.0 kg
[~2025-01-16 13:27] MED LIST changes: +Albuterol 2.5 MG/3 ML VIAL INH PRN; +Balanced Salt Epinephrine Irrigation Solution 500 mL IR SCH; +Diazepam 2 MG Tab PO PRN; +Lidocaine HCl 1% 5 ML SYR INJ ONE; +Lidocaine HCl/Pf 1% 5 ML VIAL XX SCH; +Moxifloxacin HCL 0.5 MG/0.1 ML 0.4MLSYR LEFTEYE SCH; -NS 500 ML IV ONE; +Ondansetron 4 MG SoluTab MM PRN; +Ondansetron HCl 2 MG / ML 2ML Vial IV PRN; +PHENYLEPHRINE\\TROPICAMIDE\\TETRACAINE OPHTHALMIC DILATING SOLN LEFTEYE PRN; +Povidone-Iodine 450 DROP/30 ML Solution LEFTEYE SCH; -Povidone-Iodine 450 DROP/30 ML Solution ONE; -Tetracaine HCl/Pf 0.5% Opth Soln 4 ml ONE; +Triamcinolone Inj Susp 40 MG / ML 1ML Vial INJ SCH; +diazePAM 2 MG,diazePAM 5 MG PO SCH
[2025-01-16] MEDS ORDERED: NS 500 ML IV ONE (14:11)
[2025-01-16] MEDS ORDERED: Midazolam HCl 1MG / ML 2ML Vial ONE (14:41)
[2025-01-16] MEDS ORDERED: FentaNYL Citrate 50 MCG/ML 2 ML Injection ONE (14:41)
[2025-01-16] MEDS ORDERED: propofoL 20 ML IV ONE ×3 (14:58→15:17)
[2025-01-16] MEDS ORDERED: Tetracaine HCl 0.5% Opth Soln 15 ml LEFTEYE ONE (15:03)
[2025-01-16] MEDS ORDERED: Povidone-Iodine 450 DROP/30 ML Solution LEFTEYE ONE (15:03)
[2025-01-16] MEDS ORDERED: Phenylephrine HCl 100 MCG/ML-NS 10MLSYR (1MG/10ML) ONE (15:23)
--- NOTE | 2025-01-16 16:10 | NUR ---
01/16/25 1610 Naheed Ortiz PT DROWSY, ANSWERS QUESTIONS AND FOLLOWS COMMANDS.
[2025-01-16 16:16] VITALS: BP 132/91
== END 2025-01-16 16:45 | disposition home or self-care (01) ==
LOC: ORSCSDS 13:27
PROVIDERS: Ophthalmology
PROC: 08RK3JZ Replacement of Left Lens with Synthetic Substitute, Percutaneous Approach (ICD-10-PCS; principal; 2025-01-16 14:30)
DX: E11.36 Type 2 diabetes mellitus with diabetic cataract (principal); H25.812 Combined forms of age-related cataract, left eye; Z86.73 Personal history of transient ischemic attack (TIA), and cerebral infarction without residual deficits; Z79.4 Long term (current) use of insulin; Z79.899 Other long term (current) drug therapy; I48.91 Unspecified atrial fibrillation; Z79.01 Long term (current) use of anticoagulants; I10 Essential (primary) hypertension; I25.2 Old myocardial infarction; K21.9 Gastro-esophageal reflux disease without esophagitis
CPT/HCPCS: 82947; J2250; J2371; J2704; J3010; J3301; V2632

== ENCOUNTER → 2025-04-21 | Outpatient (CLI) | payer OTHER ==
[~2025-04-21] MED LIST changes: -Albuterol 2.5 MG/3 ML VIAL INH PRN; -Balanced Salt Epinephrine Irrigation Solution 500 mL IR SCH; -Diazepam 2 MG Tab PO PRN; -Lidocaine HCl 1% 5 ML SYR INJ ONE; -Lidocaine HCl/Pf 1% 5 ML VIAL XX SCH; -Moxifloxacin HCL 0.5 MG/0.1 ML 0.4MLSYR LEFTEYE SCH; -Ondansetron 4 MG SoluTab MM PRN; -Ondansetron HCl 2 MG / ML 2ML Vial IV PRN; -PHENYLEPHRINE\\TROPICAMIDE\\TETRACAINE OPHTHALMIC DILATING SOLN LEFTEYE PRN; -Povidone-Iodine 450 DROP/30 ML Solution LEFTEYE SCH; -Triamcinolone Inj Susp 40 MG / ML 1ML Vial INJ SCH; -Triamcinolone Inj Susp 40 MG / ML 1ML Vial ONE; -diazePAM 2 MG,diazePAM 5 MG PO SCH
== END | disposition home or self-care (01) ==
LOC: LAB SHORT 10:00 → LAB 10:00
DX: S91.109A Unspecified open wound of unspecified toe(s) without damage to nail, initial encounter (principal)
CPT/HCPCS: 87070; 87075; 87077; 87186; 87205

== ENCOUNTER → 2025-04-28 | Outpatient (CLI) | payer OTHER ==
[2025-04-29 11:05] LABS: BASOPHILS ABSOLUTE AUTO 0.08 K/mm3 (0.00-0.23); BASOPHILS PERCENT AUTO 1 % (0-2); EOSINOPHILS ABSOLUTE AUTO 0.29 K/mm3 (0.00-0.68); EOSINOPHILS PERCENT AUTO 3 % (0-6); Hematocrit 32.8 % (37.0-53.0); Hemoglobin 8.4 g/dL (13.5-17.5); IMMATURE GRAN ABSOLUTE AUTO 0.09 K/mm3 (0.00-0.10); IMMATURE GRAN PERCENT AUTO 1 % (0-1); LYMPHOCYTES ABSOLUTE AUTO 1.81 K/mm3 (0.84-5.20); LYMPHOCYTES PERCENT AUTO 18 % (21-46); MONOCYTES ABSOLUTE AUTO 1.31 K/mm3 (0.16-1.47); MONOCYTES PERCENT AUTO 13 % (4-13); Mean Corpuscular HGB Conc 25.6 g/dL (31.5-36.5); Mean Corpuscular Volume 60 fL (80-100); NEUTROPHILS ABSOLUTE AUTO 6.55 K/mm3 (1.96-9.15); NEUTROPHILS PERCENT AUTO 65 % (41-73); NRBC ABSOLUTE 0.02 K/mm3 (0.00-0.02); NRBC Auto 0.2 /100 WBC (0.0-0.2); Platelet Count 415 K/mm3 (150-400); RDW Coefficient Variation 25.8 % (11.7-14.2); RDW Standard Deviation 52.8 fL (35.1-46.3)
== END ==
LOC: LAB SHORT 18:30 → LAB 18:30
PROVIDERS: Nurse Practitioner Family
DX: I10 Essential (primary) hypertension (principal); S91.109A Unspecified open wound of unspecified toe(s) without damage to nail, initial encounter
CPT/HCPCS: 85025; 85651

== ENCOUNTER 2025-06-06 08:16 | Day surgery (SDC) | payer OTHER ==
[~2025-06-06] VITALS: Ht 180.3 cm; Wt 84.0 kg
[2025-06-06] VITALS (8 sets, daily range): BP systolic 97–140; BP diastolic 60–88
[~2025-06-06 08:16] MED LIST changes: +CeFAZolin Sodium 2,000 MG in NS 100 ML IV SCH
--- NOTE | 2025-06-06 09:30 | NUR ---
History, Chart, Medications and Allergies reviewed before start of procedure WITH . PATIENT ALERT, ORIENTED TO NAME AND PLACE, UNSURE OF DATE. ANDSWERS QUESTIONS APPROPRIATLY. LUNG SOUNDS CLEAR. LEFT SIDED WEAKNESS DUE TO HX OF CVA. IN VIA W/C. TRANSFERED TO BED WITH LIFT.
--- NOTE | 2025-06-06 09:36 | NUR ---
ABRASION ON LEFT KNEE AND DOWN LEFT OREILLY. STATES PATIENT HE GOT THOSE BY FALLING OUT OF BED A WEEK AGO.
[2025-06-06] MEDS ORDERED: Bupivacaine 0.5% W/EPI 1:200000 SDV 30 ML Vial ONE (09:57)
--- NOTE | 2025-06-06 12:20 | NUR ---
PT FULL ASSIST W/DRESSING. ROWENA BLANKET PLACED AND PT MOVED TO PERSONAL W/C VIA ROWENA. Discharge instructions reviewed with patient AND . . Patient verbalizes understanding. Copy given to patient to take home. PT D/C TO MEDICAL TRANSPORATION
== END 2025-06-06 12:25 | disposition home or self-care (01) ==
LOC: ORSCSDS 08:16 → ORSCMMR 08:16 → ORSCSDS 10:00
PROVIDERS: Podiatrist Foot & Ankle Surgery
PROC: 0Y6R0Z0 Detachment at Right 2nd Toe, Complete, Open Approach (ICD-10-PCS; principal; 2025-06-06 10:30)
DX: M86.671 Other chronic osteomyelitis, right ankle and foot (principal); E11.9 Type 2 diabetes mellitus without complications; I48.91 Unspecified atrial fibrillation; I10 Essential (primary) hypertension; Z86.73 Personal history of transient ischemic attack (TIA), and cerebral infarction without residual deficits; Z79.01 Long term (current) use of anticoagulants; Z79.4 Long term (current) use of insulin; Z79.899 Other long term (current) drug therapy
CPT/HCPCS: 82947; 88305; 88311; A6253; J0690; J2704; J7120

== ENCOUNTER → 2025-07-03 | Outpatient (CLI) | payer OTHER ==
[~2025-07-03] MED LIST changes: -CeFAZolin Sodium 2,000 MG in NS 100 ML IV SCH
[2025-07-03 22:04] LABS: Alanine Aminotransfer (ALT/SGP 21.0 U/L (12-78); Albumin, Blood 2.8 g/dL (3.4-5.0); Albumin/Globulin Ratio 0.7 (0.8-1.8); Anion Gap 9.0 mmol/L (3-11); Aspartate Aminotrans (AST/SGOT 12.0 U/L (12-37); Bilirubin, Total 0.4 mg/dL (0.1-1.0); Blood Urea Nitrogen 20.0 mg/dL (8-24); CO2, Blood 25.0 mmol/L (21-32); Calcium, Blood 8.8 mg/dL (8.5-10.1); Chloride, Blood 108.0 mmol/L (98-108); Creatinine, Blood 0.9 mg/dL (0.60-1.20); Globulin, Blood 4.0 g/dL (2.2-4.0); Glucose, Blood 281.0 mg/dL (70-99); Potassium, Blood 4.3 mmol/L (3.5-5.5); Sodium, Blood 138.0 mmol/L (136-145); Total Protein, Blood 6.8 g/dL (6.4-8.2)
== END ==
LOC: LAB SHORT 14:54 → LAB 14:54
PROVIDERS: Nurse Practitioner Family
DX: I10 Essential (primary) hypertension (principal)
CPT/HCPCS: 80053